=== PATIENT | male | born 1945 | race Caucasian/White ===

== ENCOUNTER 2018-07-24 13:20 | Emergency (ER) | payer OTHER ==
--- NOTE | 2018-07-24 13:45 | EDPHY ---
H & P Stated Complaint: COUGH Time Seen by Provider: 07/24/18 13:31 HPI/ROS: Chief complaint: Cough History of present illness: This is a 72-year-old male who presents to the emergency department for evaluation of a cough. Patient reports the onset of symptoms approximately 6 days ago. Symptoms have been persistent. He is coughing up some phlegm. He does reports some nasal congestion. He states it is getting harder for him to breathe, specifically he states he feels like he cannot get enough oxygen into his body. He denies alleviating factors. Denies specific precipitating factors. Denies other associated signs or symptoms including no fevers, no sore throat, no chest pain, no pain or swelling in the legs. Review of systems: A 10 point review of systems was obtained and other than described above was negative. - Personal History Current Tetanus Diphtheria and Acellular Pertussis (TDAP): Yes Tetanus Vaccine Date: unknown - Medical/Surgical History Hx Asthma: No Hx Chronic Respiratory Disease: No Hx Diabetes: No Hx Cardiac Disease: No Hx Renal Disease: No Hx Cirrhosis: No Hx Alcoholism: No Hx HIV/AIDS: No Hx Splenectomy or Spleen Trauma: No Other PMH: L TKA, PE's - Social History Smoking Status: Former smoker - Physical Exam Exam: General Appearance: Alert, no distress. Eyes: Pupils equal and round no pallor or injection. ENT, Mouth: Mucous membranes moist. Respiratory: Lung sounds slightly diminished globally. No wheezing, rhonchi, rales. Cardiovascular: Regular rate and rhythm. Gastrointestinal: Abdomen is soft and non tender, no masses, bowel sounds normal. Neurological: Alert and oriented x4. Skin: Warm and dry, no rashes. Musculoskeletal: Neck is supple non tender. Extremities are symmetrical, full range of motion. Psychiatric: Patient is oriented X 3, there is no agitation. Constitutional: Initial Vital Signs Temperature (C) 36.9 C 07/24/18 13:22 Heart Rate 82 07/24/18 13:22 Respiratory Rate 16 07/24/18 13:22 Blood Pressure 137/89 H 07/24/18 13:22 O2 Sat (%) 94 07/24/18 13:22 O2 Delivery Mode Room Air Allergies/Adverse Reactions: influenza virus vaccine, specific [Influenza Virus Vacc,Specific] Allergy ( Intermediate, Verified 01/12/15 07:40) ramipril Allergy (Verified 01/12/15 07:40) Swelling/neck,face,throat tree nut [Nuts] Allergy (Verified 01/12/15 07:40) ALMONDS Allergy (Intermediate, Uncoded 01/12/15 07:40) Hives Home Medications: Medication Instructions Recorded Cyanocobalamin [Vitamin B12 (*)] 1,000 mcg PO DAILY 12/03/12 Rosuvastatin Calcium [Crestor 40mg 20 mg PO DAILY 12/28/14 (*)] Tadalafil [Cialis] 20 mg PO DAILY PRN 12/28/14 Calcium Carbonate [Tums 500MG (*)] 1,000 mg PO HS 01/03/15 Cetirizine [ZyrTEC 10 mg (*)] 5 mg PO DAILY PRN 01/03/15 Docusate Sodium [Colace 100 MG (*)] 100 mg PO BID #60 cap 01/13/15 Enoxaparin [Lovenox 40 MG (*)] 40 mg SC DAILY #4 syr 01/13/15 HYDROcodone/APAP 10/325 [[place] 1 tab PO Q3 PRN #120 tab 01/13/15 10/325 (*)] Warfarin Sodium [Coumadin 5MG (*)] 5 mg PO DAILY16 #20 tab 01/13/15 celeCOXIB [Celebrex (*)] 200 mg PO DAILY #20 cap 01/13/15 predniSONE 60 mg PO DAILY #9 tab 03/28/15 Medical Decision Making - Diagnostics Imaging Results: Imaging Impressions Chest X-Ray 07/24/18 13:28 Impression: No acute findings in the chest. Imaging: I viewed and interpreted images myself ED Course/Re-evaluation: Patient is seen under the supervision of my secondary supervising physician Dr.Tim Tejada. Patient presents to the emergency depart with cough. I do suspect cold symptoms with mild reactive airway disease. However, he states further that he has some trouble breathing, like he can't get air into his body. Therefore a further evaluation is undertaken. Blood studies including troponin and D-dimer are negative. EKG unremarkable. DuoNeb is given. He will be discharged home, symptomatically treated. He is to follow-up with his primary care doctor for recheck. Return precautions are given. Differential Diagnosis: Included but not limited to infectious pathology such as bronchitis or pneumonia , reactive airway disease, pneumothorax, pulmonary embolism, cardiac dysrhythmia or ACS - Data Points Laboratory Results: Laboratory Results 07/24/18 14:50 07/24/18 14:50 07/24/18 07/24/18 07/24/18 14:58 14:50 14:50 WBC RBC Hgb Hct MCV MCH MCHC RDW Plt Count MPV Neut % (Auto) Lymph % (Auto) [place] % (Auto) Eos % (Auto) Baso % (Auto) Nucleat RBC Rel Count Absolute Neuts (auto) Absolute Lymphs (auto) Absolute Monos (auto) Absolute Eos (auto) Absolute Basos (auto) Absolute Nucleated RBC Immature Gran % Seg Neutrophils % Band Neutrophils % Lymphocytes % Monocytes % Eosinophils % Basophils % Metamyelocytes % Myelocytes % Promyelocytes % Blast Cells % Immature Gran # Absolute Seg Neuts Absolute Band Neuts Absolute Lymphocytes Absolute Monocytes Absolute Eosinophils Absolute Basophils Absolute Metamyelocyte Absolute Myelocytes Absolute Promyelocytes Absolute Plasma Cells RBC/WBC/PLT Morphology Absolute Blast Cells Plasma Cells % Platelet Estimate D-Dimer 0.40 ug/mLFEU ug/mLFEU (0.00-0.50) Sodium 137 mEq/L mEq/L (135-145) Potassium 4.4 mEq/L mEq/L (3.5-5.2) Chloride 100 mEq/L mEq/L (97-110) Carbon Dioxide 22 mEq/l mEq/l (22-31) Anion Gap 15 mEq/L H mEq/L (6-14) BUN 18 mg/dL mg/dL (7-23) Creatinine 1.0 mg/dL mg/dL (0.7-1.3) Estimated GFR > 60 Glucose 108 mg/dL H mg/dL (70-100) Calcium 9.6 mg/dL mg/dL (8.5-10.4) POC Troponin I 0.00 ng/mL ng/mL (0.00-0.08) 07/24/18 14:50 WBC 6.66 10^3/uL 10^3/uL (3.80-9.50) RBC 5.29 10^6/uL 10^6/uL (4.40-6.38) Hgb 17.0 g/dL g/dL (13.7-17.5) Hct 47.5 % % (40.0-51.0) MCV 89.8 fL fL (81.5-99.8) MCH 32.1 pg pg (27.9-34.1) MCHC 35.8 g/dL g/dL (32.4-36.7) RDW 12.5 % % (11.5-15.2) Plt Count 180 10^3/uL 10^3/uL (150-400) MPV 9.9 fL fL (8.7-11.7) Neut % (Auto) Not Reported Lymph % (Auto) Not Reported [place] % (Auto) Not Reported Eos % (Auto) Not Reported Baso % (Auto) Not Reported Nucleat RBC Rel Count Not Reported Absolute Neuts (auto) Not Reported Absolute Lymphs (auto) Not Reported Absolute Monos (auto) Not Reported Absolute Eos (auto) Not Reported Absolute Basos (auto) Not Reported Absolute Nucleated RBC Not Reported Immature Gran % Not Reported Seg Neutrophils % 39.0 % % Band Neutrophils % 0.0 % % Lymphocytes % 42.0 % % Monocytes % 16.0 % % Eosinophils % 3.0 % % Basophils % 0.0 % % Metamyelocytes % 0.0 % % Myelocytes % 0.0 % % Promyelocytes % 0.0 % % Blast Cells % 0.0 % % Immature Gran # Not Reported Absolute Seg Neuts 2.60 10^3/uL 10^3/uL (1.70-6.50) Absolute Band Neuts 0.00 10^3/uL 10^3/uL (0.00-0.70) Absolute Lymphocytes 2.80 10^3/uL 10^3/uL (1.00-3.00) Absolute Monocytes 1.07 10^3/uL H 10^3/uL (0.30-0.80) Absolute Eosinophils 0.20 10^3/uL 10^3/uL (0.03-0.40) Absolute Basophils 0.00 10^3/uL L 10^3/uL (0.02-0.10) Absolute Metamyelocyte 0.00 10^3/mL 10^3/mL (0.00-0.00) Absolute Myelocytes 0.00 10^3/mL 10^3/mL (0.00-0.00) Absolute Promyelocytes 0.00 10^3/uL 10^3/uL (0.00-0.00) Absolute Plasma Cells 0.00 10^3/uL 10^3/uL (0.00-0.00) RBC/WBC/PLT Morphology NORMAL (NORMAL) Absolute Blast Cells 0.00 10^3/uL 10^3/uL (0.00-0.00) Plasma Cells % 0.0 % % Platelet Estimate ADEQUATE (ADEQ) D-Dimer Sodium Potassium Chloride Carbon Dioxide Anion Gap BUN Creatinine Estimated GFR Glucose Calcium POC Troponin I Medications Given: Discontinued Medications Albuterol/Ipratropium (Duoneb) 3 ml IH EDNOW ONE Stop: 07/24/18 15:41 Last Admin: 07/24/18 15:43 Dose: 3 ml Point of Care Test Results: Chemistry 07/24/18 14:58 POC Troponin I 0.00 ng/mL ng/mL (0.00-0.08) Departure - Departure Disposition: Home, Routine, Self-Care Clinical Impression: Cough Condition: Good Instructions: Acute Cough (ED) Additional Instructions: Follow-up with your primary care doctor this week for continued evaluation and care If symptoms worsen or new symptoms develop return to the emergency department for recheck Referrals: NOELLE CORDOVA [Primary Care Provider] - As per Instructions
[2018-07-24 15:14] LABS: PLATELET COUNT 180 10^3/uL (150-400)
[2018-07-24] MEDS ORDERED: IPRATROPIUM/ALBUTEROL 3 ML DEYVIAL IH ONE (15:40)
[2018-07-24 15:52] VITALS: BP 130/74
--- NOTE | 2018-07-25 09:29 | CPEKG ---
Test Reason : OPEN Blood Pressure : / mmHG Vent. Rate : 071 BPM Atrial Rate : 071 BPM P-R Int : 146 ms QRS Dur : 097 ms QT Int : 423 ms P-R-T Axes : -39 -46 026 degrees QTc Int : 460 ms Sinus rhythm Left anterior fascicular block Confirmed by Pierre Tejada ([id number] on 07/25/2018 9:29:27 AM Referred By: Pierre Tejada Confirmed By:Pierre Tejada
== END 2018-07-24 15:30 | disposition home or self-care (01) ==
DX: R05 Cough (principal); Z87.891 Personal history of nicotine dependence
CPT/HCPCS: 84484-ER